=== PATIENT | female | born 1990 | race African-American/Black ===

== ENCOUNTER 2017-12-14 14:17 | Emergency (ER) | payer OTHER ==
[2017-12-14 15:11] LABS: URINE HCG POC HCG NEGATIVE (Negative)
== END 2017-12-14 16:25 | disposition home or self-care (01) ==
LOC: ER 14:17
DX: S16.1XXA Strain of muscle, fascia and tendon at neck level, initial encounter (principal); M54.5 Low back pain; M25.531 Pain in right wrist; M79.601 Pain in right arm; M62.838 Other muscle spasm; V49.49XA Driver injured in collision with other motor vehicles in traffic accident, initial encounter; Y93.89 Activity, other specified; Y92.488 Other paved roadways as the place of occurrence of the external cause; Y99.8 Other external cause status
CPT/HCPCS: 72040; 72100; 73060; 81025; 99284